=== PATIENT | female | born 1980 ===

== ENCOUNTER 2017-03-14 12:18 | Emergency (ER) | payer MEDICAID ==
[2017-03-14 12:24] VITALS: TEMP 97.6
[2017-03-14 13:21] LABS: RBC URINE 1 /hpf (0-3); URINE BACTERIA RARE (<OCC); URINE BILIRUBIN NEGATIVE (NEGATIVE); URINE BLOOD 1+ (NEGATIVE); URINE COLOR Straw (YELLOW); URINE GLUCOSE (UA) NORMAL (Normal); URINE KETONE TRACE mg/dL (NEGATIVE); URINE LEUKOCYTE ESTERASE NEG Leu/uL (Negative); URINE PROTEIN NEGATIVE (NEGATIVE); URINE UROBILINOGEN NORMAL mg/dL (0.2-1.0); WBC URINE < 1 /hpf (0-5)
[2017-03-14] MEDS ORDERED: Sodium Chloride 0.9% 1,000 ML IV ONE (13:46)
[2017-03-14] MEDS ORDERED: Sodium Chloride 0.9% 1,000 ML ONE (14:10)
--- NOTE | 2017-03-14 14:25 | C.PDOC ---
History Of Present Illness 36 year old female presents to ED with complaints of lower abdominal cramping pain since this morning. Patient states when she went to use restroom she felt pain during urination. Patient admits to constipation for 3 days and usually gets constipated. She denies any nausea, vomiting, diarrhea, vaginal bleeding, vaginal discharge, fever. Time Seen by Provider: 03/14/17 13:20 Chief Complaint (Nursing): Abdominal Pain History Per: Patient History/Exam Limitations: no limitations Onset/Duration Of Symptoms: Hrs Current Symptoms Are (Timing): Still Present Severity: Moderate Location Of Pain/Discomfort: RLQ, LLQ Quality Of Discomfort: Cramping Associated Symptoms: Constipation. denies: Fever, Chills, Nausea, Vomiting, Diarrhea Exacerbating Factors: None Alleviating Factors: None Recent travel outside of the [place]: No Abnormal Vaginal Bleeding: No Past Medical History Reviewed: Historical Data, Nursing Documentation, Vital Signs Vital Signs: Last Vital Signs Temp 97.6 F 03/14/17 12:21 Pulse 76 03/14/17 15:12 Resp 18 03/14/17 15:12 BP 113/76 03/14/17 15:12 Pulse Ox 100 03/14/17 15:25 - Medical History PMH: Gastritis Family History: States: Unknown Family Hx - Social History Hx Alcohol Use: Yes Hx Substance Use: No - Immunization History Hx Tetanus Toxoid Vaccination: No Hx Influenza Vaccination: No Hx Pneumococcal Vaccination: No Review Of Systems Constitutional: Negative for: Fever, Chills Gastrointestinal: Positive for: Abdominal Pain, Constipation. Negative for: Nausea, Vomiting, Diarrhea Genitourinary: Positive for: Dysuria. Negative for: Vaginal Discharge, Vaginal Bleeding Physical Exam - Physical Exam Appears: Non-toxic, No Acute Distress Skin: Warm, Dry, No Rash Head: Atraumatic, Normacephalic Eye(s): bilateral: Normal Inspection Neck: Normal, Normal ROM, Supple Chest: Symmetrical, No Tenderness Cardiovascular: Rhythm Regular, No Murmur Respiratory: Normal Breath Sounds, No Rales, No Rhonchi, No Wheezing Gastrointestinal/Abdominal: Soft, Tenderness (bilateral lower quadrants), No Distention, No Guarding, No Rebound, No Other (negative McBurney point tenderness) Back: No CVA Tenderness Extremity: Bilateral: Atraumatic, Normal Color And Temperature, Normal ROM Neurological/Psych: Oriented x3, Normal Speech ED Course And Treatment - Laboratory Results Result Diagrams: 03/14/17 14:19 03/14/17 14:19 Lab Interpretation: No Acute Changes O2 Sat by Pulse Oximetry: 100 (room air) Pulse Ox Interpretation: Normal Medical Decision Making Medical Decision Making: Impression: lower abdominal pain Plan: * UA and UCG * Tylenol Progress: 1318 UA and UCG negative Will place order for labs and obstructive series XRay reviewed by me showing moderate fecal retention and mild dilated bowel gas Labs reviewed and unremarkable, no leukocytosis, shift, bands or other abnormality Upon reevaluation, patient resting comfortably in no acute distress. She has no fever and vital signs stable. Patient reports abdominal pain has much improved. Abdomen remains soft and no longer tender, no guarding or rebound, no signs of surgical pathology. Patient feels comfortable going home and will be discharged Disposition Counseled Patient/Family Regarding: Diagnosis, Need For Followup, Rx Given - Disposition Referrals: [facility] [Outside] [id number] [Outside] Disposition: HOME/ ROUTINE Disposition Time: 15:15 Condition: STABLE Additional Instructions: Tus laboratorios edmar normales. La radiografa muestra estreimiento Gabriela ms lquidos, norman ejercicios y aada ms fibra a la dieta [place] los medicamentos prescritos para ayudar con la con fi ssipacin Norman un seguimiento con pina mdico o clnica Prescriptions: Docusate Sodium [Colace] 100 mg PO TID #30 capsule Magnesium Citrate [Citrate of Mag] 300 ml PO ONCE #1 bottle Instructions: Constipation (DC), High Fiber Diet (ED) Print Language: LUX[place]ISH - POA Present On Arrival: None - Clinical Impression Clinical Impression: Constipation, Lower abdominal pain - PA / [employer] / Resident Statement MD/DO has reviewed & agrees with the documentation as recorded. - Scribe Statement The provider has reviewed the documentation as recorded by the Sujeyibaleja Dunn All medical record entries made by the Wade were at my direction and personally dictated by me. I have reviewed the chart and agree that the record accurately reflects my personal performance of the history, physical exam, medical decision making, and the department course for this patient. I have also personally directed, reviewed, and agree with the discharge instructions and disposition.
[2017-03-14 14:26] LABS: BASO % 0.2 % (0.0-2.0); EOS # 0.1 K/uL (0.0-0.7); EOS % 1.6 % (0.0-4.0); HEMATOCRIT 43.2 % (34.0-47.0); LYMPH # 2.7 K/uL (1.0-4.3); MEAN CORPUSCULAR HEMOGLOBIN 30.8 pg (27.0-31.0); MEAN CORPUSCULAR HGB CONC 32.7 g/dL (33.0-37.0); MEAN PLATELET VOLUME 8.9 fL (7.2-11.7); MONO # 0.5 K/uL (0.0-0.8); MONO % 6.6 % (0.0-10.0); NRBC % 0.1 % (0.0-2.0); RED CELL DISTRIBUTION WIDTH 12.6 % (11.5-14.5); WHITE BLOOD COUNT 7.5 K/uL (4.8-10.8)
[2017-03-14 14:44] LABS: CHLORIDE 107 mmol/L (98-107); POTASSIUM 3.4 mmol/L (3.6-5.2); SODIUM 138 mmol/L (132-148)
[2017-03-14 14:46] LABS: ALB/GLOB RATIO 1.2 (1.0-2.1); ALKALINE PHOSPHATASE 60 U/L (38-126); AST/SGOT 27 U/L (14-36); BILIRUBIN,TOTAL 0.8 mg/dL (0.2-1.3); CARBON DIOXIDE 18 mmol/L (22-30); GFR AFRICAN-AMERICAN > 60; TOTAL PROTEIN 7.2 g/dL (6.3-8.3)
[2017-03-14 14:47] LABS: ALT/SGPT 10 U/L (9-52); BLOOD UREA NITROGEN 9 mg/dL (7-17); GLUCOSE,RANDOM 96 mg/dL (65-105)
[2017-03-14 15:12] VITALS: BP 113/76; PULSE 76; RESP 18
[2017-03-14 15:18] VITALS: O2SAT 100
--- NOTE | 2017-03-14 16:48 | RAD ---
PROCEDURE: Obstructive series dated 03/14/2017. HISTORY: Lower abdominal pain. Constipation COMPARISON: No prior. TECHNIQUE: AP radiograph of the chest, with upright and supine radiographs of the abdomen. FINDINGS: CHEST: Heart size is normal. Suspect mild bibasilar atelectasis. Lung vazuqez are otherwise clear. No effusion or apparent pneumothorax. Suspect mild biapical pleural thickening ABDOMEN AND PELVIS: No gross free intraperitoneal air seen under the diaphragmatic surfaces. No evidence of acute mechanical bowel obstruction Moderate amount of stool seen throughout the colon consistent with constipation. Note made of metallic zipper pull overlying the lower sacrum. Mild to moderate dextroscoliosis centered at the thoracolumbar junction IMPRESSION: Suspect minor bibasilar atelectasis. Findings consistent with constipation. No evidence of acute mechanical bowel obstruction
== END 2017-03-14 15:28 | disposition home or self-care (01) ==
LOC: C.ER 12:18
DX: K59.00 Constipation, unspecified (principal); R10.30 Lower abdominal pain, unspecified
CPT/HCPCS: 74022; 80053; 81001; 83690; 84703; 85025; 96361; 96374; 96375; 99285; J1885; J7040